=== PATIENT | female | born 1975 | race Two or more races ===

== ENCOUNTER → 2024-11-07 | Outpatient (CLI) | payer MEDICAID, SELFPAY ==
--- NOTE | 2024-11-07 | XR_ITS ---
EXAMINATION: Cervical spine, 5 views Technique: Cervical spine AP, AP odontoid, lateral, bilateral obliques, 5 views Exam date and time: November 07, 2024 1246 hours INDICATIONS: Neck pain radiating to both shoulders beginning 6 months ago FINDINGS: Straightening normal cervical lordosis Satisfactory alignment cervical vertebral bodies. No cervical fracture No significant neural foraminal stenosis Intact odontoid IMPRESSION: No cervical fracture or significant cervical disc narrowing
--- NOTE | 2024-11-07 | XR_ITS ---
Examination: Lumbar spine, 5 views Technique: Lumbar spine AP, lateral, coned lateral lower lumbar spine, bilateral obliques 5 views Exam date and time: November 07, 2024 1246 hours INDICATIONS: Lower back pain beginning 6 months ago. FINDINGS: AP film suspicious for 9 mm left renal calculus Adequate alignment lumbar vertebral bodies No lumbar fracture Mild to moderate disc narrowing L4-L5, L5-S1 Mild lumbar spondylosis IMPRESSION: No lumbar fracture Mild to moderate disc narrowing L4-L5, L5-S1
== END | disposition home or self-care (01) ==
LOC: CDIM 11:04
PROVIDERS: PCP Nurse Practitioner Family; Referring Provider Nurse Practitioner Family; Visit Provider Nurse Practitioner Family
DX: M54.2 Cervicalgia (principal); M48.061 Spinal stenosis, lumbar region without neurogenic claudication; M48.07 Spinal stenosis, lumbosacral region
CPT/HCPCS: 72050; 72110

== ENCOUNTER 2024-12-02 08:42 | Outpatient (RCR) | payer MEDICAID, SELFPAY ==
--- NOTE | 2024-12-02 09:17 | PT.OIERPT ---
PT OP Initial Eval Patient Information Outpatient Physical Therapy Treatment Date: 12/02/24 Visit Reasons: LOW BACK PAIN Medical Diagnosis: M54.5 M54.2 Treatment Dx #1: LBP Treatment Dx #2: neck pain Start of Care: 12/02/24 Date of Onset: 2 yrs ago Smoking Status Smoking Status: Never smoker Initial Assessment Subjective: Pt is 49 yr old setswana speaking female who reports variable level LBP worsening over 2 yrs which limits bending and lifting tolerances. When pain is intense she is limited with HH chores. Every other day the pain is bad. The feet feel numb at times. PMH: high cholesterol, HTN Imaging: Xrays of neck and LB in EMR- Mild to moderate disc narrowing L4-L5, L5-S1 Pt goal: to get rid of the LBP in order to work Objective: ? Trunk ArOM: ? B SB 50% of normal with pain ? Extension: 10% with pain around L4-5, L5-S1 ? Flexion: 10 from floor with LBP ? B rotation: 60% with pain on L side ? TTP: moderate paraspinals L5-S1 ? Neuro: B SLR: negative C/S: TTP: non-TTP Assessment: Pt presents with trunk extension sensitivity and overlying myofascial pain ? and TTP around L5-S1 consistent with ? lower lumbar disc irritation and possible anterolisthesis of L4 on L5 on Xray. Pt requires skilled therapy in order to decrease ? pain and improve sitting/standing tolerance and has fair rehab potential. 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 Ind with HEP ? 2. Improved sitting/standing tolerance to 30 minutes with <=4/10 LBP ? 3. Decreased lower paraspinal TTP from mod to min 4. Improved HH chore tolerance to at least 30 minutes with <=3/10 LBP and no ?increase in LE ssx ? Treatment Plan 1. Manual therapy ? 2. Therex ? 3. Modalities as indicated, moist heat, ice, estim, mechanical traction Frequency and Duration: 1-2x a week for 4 trial visits then reassess, if improving up to 12 visits Certification Dates: 12/02/24 to 02/28/25 Procedure Charges OP PT Eval Mod Complex 30 minutes: Yes
== END 2024-12-27 23:59 | disposition home or self-care (01) ==
LOC: CPTX 08:42
PROVIDERS: PCP Nurse Practitioner Family; Referring Provider Nurse Practitioner Family; Visit Provider Nurse Practitioner Family
DX: M54.50 Low back pain, unspecified (principal); M54.2 Cervicalgia
CPT/HCPCS: 97162

== ENCOUNTER → 2024-12-30 | Outpatient (CLI) | payer MEDICAID, SELFPAY ==
--- NOTE | 2024-12-30 14:00 | XR_ITS ---
Examination: Retroperitoneal ultrasound, complete Technique: Multiple high resolution grayscale images of the retroperitoneum obtained, including kidneys and bladder. Exam date and time:December 30, 2024 1402 hours INDICATIONS: Right flank pain beginning 6 months ago FINDINGS: Right kidney 12.5 x 7.1 x 4.7 cm cortex 2.1 cm Left kidney 12.6 x 6.8 x 5.1 cm cortex 1.8 cm 12 mm midpole left renal calculus No bladder mass or bladder calculi Bladder prevoid volume 237 cc IMPRESSION: Moderate bilateral renal parenchymal scar formation 12 mm midpole left renal calculus, no hydronephrosis
== END | disposition home or self-care (01) ==
LOC: CDIM 13:11
PROVIDERS: PCP Nurse Practitioner Family; Referring Provider Nurse Practitioner Family; Visit Provider Nurse Practitioner Family
DX: N28.89 Other specified disorders of kidney and ureter (principal); N20.0 Calculus of kidney
CPT/HCPCS: 76770

== ENCOUNTER → 2025-02-13 | Outpatient (BNVA) | payer MEDICAID, SELFPAY | END | disposition home or self-care (01) | PROVIDERS: PCP Nurse Practitioner Family; Referring Provider Nurse Practitioner Family; Visit Provider Urology | DX: R10.9 Unspecified abdominal pain (principal); I10 Essential (primary) hypertension; E78.5 Hyperlipidemia, unspecified; E66.9 Obesity, unspecified; Z68.41 Body mass index [BMI] 40.0-44.9, adult | CPT/HCPCS: 81003; 99212; G0463 ==

== ENCOUNTER → 2025-04-14 | Outpatient (CLI) | payer MEDICAID, SELFPAY ==
--- NOTE | 2025-04-14 13:00 | XR_ITS ---
Examination: CT abdomen and pelvis without contrast. Coronal 3-D reconstructions. Sagittal 2-D reconstructions. Date and time of exam:10/15/2025 1212 hours INDICATIONS: History kidney stones one year with flank pain beginning 5 months ago CTDI: vol (mGy): 14.8 DLP: (mGycm): 841 Technique: Axial images of the abdomen have been obtained, 3 mm slice thickness Intravenous contrast material has not been administered. Low dose protocols were performed. One or more of the following dose reduction techniques were used; automated exposure control, adjustment of the mA and/or KV according to patient size, use of iterative reconstruction technique. Findings: No focal liver or splenic lesions No pancreatic or adrenal mass 8mm 2 mm nonobstructing left renal calculi Normal appendix No bowel obstruction 4.8 cm posterior right pelvic cyst No bladder mass or bladder calculi Grade 1 anterolisthesis L4 on L5 IMPRESSION: Nonobstructing left renal calculi No hydronephrosis or ureteral calculi Normal appendix No bladder mass or bladder calculi
== END | disposition home or self-care (01) ==
LOC: CCTX 12:01
PROVIDERS: Referring Provider Urology; Visit Provider Urology
DX: N20.0 Calculus of kidney (principal)
CPT/HCPCS: 74176

== ENCOUNTER → 2025-05-19 | Outpatient (BNVA) | payer OTHER, MEDICAID, SELFPAY | END | disposition home or self-care (01) | PROVIDERS: PCP Nurse Practitioner Family; Referring Provider Nurse Practitioner Family; Visit Provider Urology | DX: N20.0 Calculus of kidney (principal); I10 Essential (primary) hypertension; E78.5 Hyperlipidemia, unspecified; E66.9 Obesity, unspecified; Z68.41 Body mass index [BMI] 40.0-44.9, adult | CPT/HCPCS: 81003; 99212; G0463 ==

== ENCOUNTER → 2025-10-16 | Outpatient (CLI) | payer OTHER, MEDICAID, SELFPAY ==
--- NOTE | 2025-10-16 10:01 | XR_ITS ---
Examination: Lumbar spine, 5 views Technique: Lumbar spine AP, lateral, coned lateral lower lumbar spine, bilateral obliques 5 views Exam date and time: October 16, 2025, 1014 hours Comparison October 28, 2024 INDICATIONS: Low back pain 1 year. FINDINGS: Moderate osteopenia Moderate diffuse facet arthropathy Grade 1 anterolisthesis L4 on L5 Moderate disc narrowing L4-L5 Mild lumbar spondylosis No lumbar fracture IMPRESSION: Moderate degenerative disc disease L4-L5
== END | disposition home or self-care (01) ==
PROVIDERS: PCP Nurse Practitioner Family; Referring Provider Nurse Practitioner Family; Visit Provider Nurse Practitioner Family
DX: M51.360 Other intervertebral disc degeneration, lumbar region with discogenic back pain only (principal)
CPT/HCPCS: 72110

== ENCOUNTER 2025-10-31 15:50 | Emergency (ER) | payer MEDICAID, SELFPAY ==
[2025-10-31 15:51] VITALS: BMI 45.7
[2025-10-31 16:04] VITALS: BP 161/95; PULSE 80; RESP 19; TEMP 37; O2SAT 99
--- NOTE | 2025-10-31 16:14 | XR_ITS ---
Examination: CT abdomen and pelvis without contrast. Coronal 3-D reconstructions. Sagittal 2-D reconstructions. Date and time of exam: October 31, 2025, 1642 hours, comparison April 14, 2025 INDICATION: Right flank pain beginning 6 months ago, history kidney stones CTDI: vol (mGy): 19.7 DLP: (mGycm): 966 Technique: Axial images of the abdomen have been obtained, 3 mm slice thickness Intravenous contrast material has not been administered. Low dose protocols were performed. One or more of the following dose reduction techniques were used; automated exposure control, adjustment of the mA and/or KV according to patient size, use of iterative reconstruction technique. Findings: No focal liver or splenic lesions Contracted gallbladder No pancreatic or adrenal mass 11 mm left renal calculus No hydronephrosis or ureteral calculi Aorta normal size 15 mm fat-containing umbilical hernia Normal appendix Right posterior pelvic cyst, 4.9 cm Contracted urinary bladder with moderate urinary bladder wall thickening Mild enlargement fundus of the uterus with small uterine calcification Grade 1 anterolisthesis L4 on L5 with moderate degenerative disc disease at this level IMPRESSION: 11 mm nonobstructing left renal calculus, no hydronephrosis or ureteral calculi Normal appendix Recommend pelvic sonography to assess 4.9 cm posterior right pelvic cyst Urinary bladder wall thickening, differential would include cystitis
--- NOTE | 2025-10-31 16:14 | PD.EDRME ---
Rapid Medical Screening Exam [facility] Arrival date/time: 10/31/25 15:50 50-year-old female with no known medical history presents to the emergency room with a chief complaint of right-sided flank pain and lower abdominal pain x 2 days. Patient also has some bilateral lower extremity swelling. I have greeted and performed a focused initial assessment of this patient. A comprehensive ED assessment and evaluation of the patient, analysis of all test results, and completion of the medical decision making process will be conducted by additional ED providers. Chief Complaint: Abdominal Pain Vital signs: Vital Signs Temperature 98.6 F 10/31/25 16:04 Pulse Rate 80 10/31/25 16:04 Respiratory Rate 19 10/31/25 16:04 Blood Pressure 161/95 H 10/31/25 16:04 Pulse Oximetry (%) 99 10/31/25 16:04 Oxygen Delivery Method Room Air 10/31/25 16:04 Vital signs reviewed by provider: Yes Exam: Clear bilateral lung sounds Strong and regular rhythm Right sided CVA tenderness with palpation Clinical Impression: Renal calculi/ureteral calculi/UTI/pyelonephritis
[2025-10-31] MEDS: KETOROLAC INJ 60 MG/2 ML VIAL 30 MG IM (16:26)
[2025-10-31 16:49] LABS: Basophils # (Auto) 0.1 Thou/mm3 (0.0-0.2); Basophils % (Auto) 1 % (0-2.5); Eosinophils # (Auto) 0.1 Thou/mm3 (0.0-0.5); Eosinophils % (Auto) 1 % (0-10); Hematocrit 39.8 % (36.0-46.0); Hemoglobin 13.5 g/dL (12.0-16.0); Immature Granulocytes Auto 0.01 Thou/mm3 (0.00-0.00); Lymphocytes # (Auto) 2.0 Thou/mm3 (1.0-4.8); Lymphocytes % (Auto) 29 % (10-50); Mean Corpuscular HGB Conc 33.9 g/dl (31.0-37.0); Mean Corpuscular Hemoglobin 29.2 pg (25.0-35.0); Mean Corpuscular Volume 86 fL (80-100); Monocytes # (Auto) 0.5 Thou/mm3 (0.0-0.8); Monocytes % (Auto) 8 % (0-12); Neutrophils # (Auto) 4.1 Thou/mm3 (1.8-7.7); Neutrophils % (Auto) 61 % (37-80); Nucleated Red Blood Cell # 0.00 Thou/mm3 (0.00-0.00); Nucleated Red Blood Cell % 0 /100 WBC (0); Platelet Count 270 Thou/mm3 (140-440); RDW Standard Deviation 38.6 fL (36.4-46.3); Red Blood Count 4.62 Miln/mm3 (4.00-5.20); White Blood Count 6.7 Thou/mm3 (3.6-11.0)
[2025-10-31 17:04] LABS: Alanine Aminotransferase 16 U/L (10-49); Albumin, Serum 4.7 gm/dL (3.5-5.0); Albumin/Globulin Ratio 1.4 (1.2-2.2); Alkaline Phosphatase 87 U/L (46-116); Anion Gap 9 (7-16); Aspartate Amino Transferase 25 U/L (0-34); BUN/Creatinine Ratio 15 Ratio (12-20); Bilirubin,Total 0.4 mg/dL (0.3-1.2); Blood Urea Nitrogen 9 mg/dL (9-23); Calcium 9.4 mg/dL (8.3-10.6); Calcium (Corrected) 9.4 mg/dL (8.5-10.1); Carbon Dioxide 26.6 mMol/L (20.0-31.0); Chloride 104 mMol/L (98-107); Creatinine (Component) 0.6 mg/dL (0.6-1.3); Estimated Creatinine Clearance 132.1 mL/min (>60); Globulin 3.4 gm/dL (2.3-3.5); Glucose 117 mg/dL (74-106); Lipase 29 U/L (12-53); Osmolality,Calculated 279 (275-295); Potassium 3.4 mMol/L (3.4-5.1); Sodium 140 mMol/L (136-145); Total Protein 8.1 gm/dL (5.7-8.2); eGFR > 60 See Note
[2025-10-31 17:29] LABS: Collection Type, Urine Clean Catch
[2025-10-31 17:39] LABS: Bilirubin,Urine Negative (Negative); Blood,Urine Trace (Negative); Clarity,Urine Clear (Clear/Hazy); Color,Urine Lt-Yellow (Lt Yel-Yel); Glucose, Urine Negative (Negative); HCG Qualitative,Urine Negative; Ketones,Urine Negative (Negative); Leukocyte Esterase,Urine Positive (Negative); Nitrite,Urine Negative (Negative); PH,Urine 6.0 (5.0-7.0); Protein,Urine Negative (Neg - Trace); RBC,Urine 1 /hpf (0-3); Specific Gravity,Urine 1.015 (1.001-1.035); Squamous Epithelial Cell,Urine 5 /hpf (0-5); Urobilinogen,Urine Negative mg/dL (0.0-1.0); WBC,Urine 2 /hpf (0-5)
--- NOTE | 2025-10-31 18:56 | PD.EDADULT ---
ED General RME/HPI General Chief complaint: Abdominal Pain Stated complaint: L) FLANK PAIN X 1 DAY Time Seen by Provider: 10/31/25 18:31 Arrival date/time: 10/31/25 15:50 CC: Right flank pain HPI ongoing on for 6+ months intermittent in nature denies fever chills shortness of breath or difficulty breathing. Seen by her PCP who is referred her to a specialist . Patient denies chest pain fever chills RME / HPI RME / HPI narrative: 10/31/25 15:50 50-year-old female with no known medical history presents to the emergency room with a chief complaint of right-sided flank pain and lower abdominal pain x 2 days. Patient also has some bilateral lower extremity swelling. I have greeted and performed a focused initial assessment of this patient. A comprehensive ED assessment and evaluation of the patient, analysis of all test results, and completion of the medical decision making process will be conducted by additional ED providers. Exam: Clear bilateral lung sounds Strong and regular rhythm Right sided CVA tenderness with palpation Impression: Renal calculi/ureteral calculi/UTI/pyelonephritis Related Data Previous Rx's ?Medication ?Instructions ?Recorded ketorolac 10 mg tablet 10 mg PO Q8H #14 tabs 10/31/25 Allergies Allergy/AdvReac Type Severity Reaction Status Date / Time No Known Allergies Allergy Verified 10/31/25 15:53 Review of Systems Review of Systems Narrative Review of Systems: GEN: No fever, no chills, no weight loss EYES: No discharge, no visual changes, no pain HEENT: No ear pain, no congestion, no sore throat PULM: No shortness of breath, no cough, no congestion CV: No chest pain, no dyspnea on exertion, no palpitations GI: No nausea, no vomiting, no diarrhea, no pain, no constipation : No frequency, no urgency, no dysuria MUSC/SKEL: No joint pain, no back pain SKIN: No rash PSYCH: No hallucinations, no depression HEME/LYMPH: No easy bleeding or bruising tendencies NEURO: No weakness, no headache Past Medical History Social History SMOKING STATUS: Never smoker ED Exam Narrative Physical exam: [General: Obese not in any acute distress Head normocephalic HEENT: Within acceptable limits Neck is supple nontender Chest equal chest rise nontender to palpation Respiratory: Clear to auscultation no wheezes crackles or rubs CV: Rate rhythm is regular no murmurs rubs or clicks Abdomen is distended secondary to body habitus soft nontender no masses positive bowel sounds all 4 quadrants Back: No CVA tenderness no spinous process tenderness from cervical spine thoracic and lumbar spine Skin: Intact no petechiae rash induration ulceration or crepitus Extremities: Moving all extremity against resistance cap refill less than 2 seconds neurosensory intact Neuro: Awake alert oriented x3 Glascow coma 15 no focal deficits] Course Quality Measures none Orders Category Date Time Status CT abdomen pelvis wo con Stat Exams 10/31/25 16:14 Completed CBC Stat Lab 10/31/25 16:20 Completed CMP [Comprehensive Metabolic Panel] Stat Lab 10/31/25 16:20 Completed HCG Qualitative,Urine Stat Lab 10/31/25 17:21 Completed Lipase Stat Lab 10/31/25 16:20 Completed UA [Urinalysis] Stat Lab 10/31/25 17:21 Completed Urine Culture Stat Lab 10/31/25 17:21 Received Ketorolac Inj [Toradol Inj] Med 10/31/25 16:14 Discontinued 30 mg IM X1 ONE Vital Signs Vital signs: Vital Signs Temperature 98.6 F 10/31/25 16:04 Pulse Rate 80 10/31/25 16:04 Respiratory Rate 19 10/31/25 16:04 Blood Pressure 161/95 H 10/31/25 16:04 Pulse Oximetry (%) 99 10/31/25 16:04 Oxygen Delivery Method Room Air 10/31/25 16:04 Discharge Plan Plan Patient Disposition: HOME (Self Care) Patient condition on transfer: Stable Prescriptions/Referrals Prescriptions/Med Rec: New ketorolac 10 mg tablet 10 mg PO Q8H Qty: 14 0RF Rx Instructions: maximum total duration of 5 days from all oral, intranasal, or parenteral formulations Referrals: Sarahi Foster MD [Physician, Urology] - In 1 week Jordan([facility]),KONRAD Hernandez [Primary Care Provider] - In 1 week Problem List Clinical Impression: Flank pain, Kidney stone Patient/Caregiver Discharge Instructions Other Activity Instructions:: Take the medication as needed for pain relief, follow-up with the urologist listed above if there is a worsening of symptoms return the emergency room for reevaluation. Education Materials: ED Kidney Stone Undescended No ... Print Language: Mohawk Stand Alone Forms: Desi Award Info., Patient Portal Info Letter, Work/School Release PA/SIVA Supervising Physician SNEHA/SIVA Supervising Physician: Gurpreet Jarrett ENP MDM Clinical Information Provided by: patient Medical Records reviewed [facility] Meds/Rx considered, not ordered None Labs/Rad/Tests considered, not ordered None Chronic Illness/Social Conditions Explain: Obesity EKG EKG not done Labs Labs: interpreted by me Lab(s) Interpretation(s): CBC shows no acute leukocytosis anemia thrombocytopenia CMP shows no significant electrolyte imbalances renal impairment transaminitis or T. bili elevation Urine is negative for UTI is negative. Imaging Imaging interpretation: interpreted by vt Imaging Interpretation(s): CT of the abdomen shows 11 mm renal pelvic stone no hydro. And there is a pelvic cyst as well. Medication Administration(s) Medication Administration History Discontinued Medications Ketorolac Tromethamine (Ketorolac Inj 60 Mg/2 Ml Vial) 30 mg IM X1 ONE Stop: 10/31/25 16:15 Last Admin: 10/31/25 16:26 Dose: 30 mg Documented By: MICHA Diagnosis Differential Diagnosis ED Complaint MDM: Urolithiasis hydroureter hydronephrosis
== END 2025-10-31 19:10 | disposition home or self-care (01) ==
PROVIDERS: Nurse Practitioner Family; Emergency Provider Emergency Medicine; PCP Nurse Practitioner Family
DX: N20.0 Calculus of kidney (principal)
CPT/HCPCS: 36415; 74176; 80053; 81001; 81025; 83690; 85025; 87086; 96372; 99283; J1885